=== PATIENT | female | born 1975 | race Caucasian/White ===

== ENCOUNTER 2017-12-20 12:40 | Emergency (ER) | payer OTHER ==
[2017-12-20 13:10] LABS: Bilirubin Negative (Negative); Blood, Urine Trace (Negative); Clarity Hazy (Clear); Glucose, Urine (Dipstick) Negative (Negative); Leukocyte Trace (Negative); Nitrite Negative (Negative); Protein, Urine (Dipstick) Negative (Neg-Trace); Urobilinogen 0.2 mg/dL (0.2-1.0)
[2017-12-20 13:17] LABS: Pregnancy Test - Urine (BHCG) Negative (Negative); Pregu Control Background? CLEAR/WHITE (CLR/WHITE); Pregu Control Bar Appear? YES (CONTROL BAR)
[2017-12-20 13:19] LABS: #Basophils 0.1 thou/uL (0.0-0.2); #Eosinphils 0.1 thou/uL (0.0-0.7); #Lymphocytes 1.3 thou/uL (1.20-3.40); #Monocytes 0.4 thou/uL (0.11-0.59); #Neutrophils 4.6 thou/uL (1.40-6.50); %Basophils 0.8 % (0.0-1.0); %Eosinophils 2.3 % (0.0-10.0); %Lymphocytes 20.8 % (21.0-51.0); %Monocytes 5.4 % (0.0-10.0); %Neutrophils 70.6 % (42.0-75.0); Hemoglobin 13.2 g/dL (12.0-16.0); Mean Corpuscular HGB CONC 34.9 g/dL (32.0-36.0); Mean Corpuscular Hemoglobin 28.9 pg (27.0-31.0); Mean Corpuscular Volume 82.9 fL (78.0-98.0); Mean Platelet Volume 6.6 fL (7.4-10.4); Platelet Count 220 thou/uL (130-400); RBC Distribution Width 11.8 % (11.5-14.5); Red Blood Cell (RBC) Count 4.55 mill/uL (4.20-5.40); White Blood Cell (WBC) Count 6.4 thou/uL (4.8-10.8)
[2017-12-20] MEDS ORDERED: Ketorolac Tromethamine 30 MG/ML VIAL ONE (13:24)
[2017-12-20 13:29] LABS: Bacteria/HPF 1+ HPF (None Seen); RBC/HPF 0-3 HPF (0-3)
[2017-12-20 13:36] LABS: Anion Gap 12 mmol/L (10-20); BUN (Urea Nitrogen) 9 mg/dL (7.0-18.7); Calc. Creatinine Clearance 0 mL/min (70-130); Calcium 9.3 mg/dL (7.8-10.44); Carbon Dioxide 21 mmol/L (22-29); Chloride 111 mmol/L (98-107); Estimated GFR-MDRD 78; Glucose 87 mg/dL (70-105); Lipase 23 U/L (8-78); Potassium 3.8 mmol/L (3.5-5.1); Sodium 140 mmol/L (136-145)
[2017-12-20 13:37] LABS: ALT (SGPT) 19 U/L (8-55); AST (SGOT) 15 U/L (5-34); Albumin 4.3 g/dL (3.5-5.0); Alkaline Phosphatase 48 U/L (40-150); Bilirubin, Direct 0.1 mg/dL (0.1-0.3); Bilirubin, Total 0.4 mg/dL (0.2-1.2); Protein, Total 7.1 g/dL (6.0-8.3)
--- NOTE | 2017-12-20 14:38 | CT ---
CT OF ABDOMEN AND PELVIS PERFORMED WITHOUT CONTRAST ENHANCEMENT: Date: 12/20/17 HISTORY: Abdominal pain. History of kidney stones. Left flank pain. FINDINGS: The lung bases are clear. The liver, spleen, pancreas, and gallbladder regions all appear unremarkabl e. Right and left adrenal glands are normal in appearance. Punctate bilateral renal calculi are seen wit h a single punctate calculus seen within the lower pole of the right kidney and also a small punctate calculus on the left. There is a mid left ureteral calculus located at approximately the L4-5 level. It measures approxiamtely 5.0 mm in size. There is no significant periaortic or mesenteric adenopath y. CT of pelvis was performed without contrast enhancement. The appendix region appears unremarkable. No evidence of adenopathy or mass. Several calcifications are seen within the pelvis. These are felt to represent phleboliths. Follicles are seen involving the adnexa. IMPRESSION: 1. 4-5 mm mid left ureteral calculus associatd with minimal dilatation of the left collecting system . 2. Punctate bilateral lower pole renal calculi. POS: GABRIELLE
== END 2017-12-20 14:37 | disposition home or self-care (01) ==
LOC: SCSER 12:40
DX: N20.2 Calculus of kidney with calculus of ureter (principal); G40.909 Epilepsy, unspecified, not intractable, without status epilepticus; Z79.899 Other long term (current) drug therapy
CPT/HCPCS: 74176; 80048; 80076; 81003; 81015; 81025; 83690; 85025; 96361; 96374; J1885

== ENCOUNTER 2018-03-30 15:45 | Outpatient (CLI) | payer OTHER ==
--- NOTE | 2018-03-31 08:09 | MRI ---
MRI BRAIN WITH AND WITHOUT CONTRAST MRI PITUITARY GLAND WITH AND WITHOUT CONTRAST: Date: 03/30/18 INDICATION: Hyperprolactinemia, 43-year-old female. FINDINGS: There is appropriate volume of the pituitary gland. No evidence of a sellar mass. Pituitary infundibu lum demonstrates appropriate enhancement and is located at midline. No mass effect upon optic chiasm. There is no acute territorial infarction, intracranial mass effect, midline shift, or ventriculomegal y. The imaged skull base flow-voids are patent. There are T2 hypointense foci of the scalp soft tissu es, which are intermediate in T1 signal and may related to dermal inclusion cysts/sebaceous cysts, lo cated within the posterior right parietal and left occipital scalp. Correlate with physical exam. IMPRESSION: 1. No pituitary mass. 2. No acute intracranial abnormalities. POS: GABRIELLE
== END 2018-03-30 15:46 | disposition home or self-care (01) ==
LOC: SCSMRI 15:45
PROVIDERS: ATTEND Family Medicine
DX: E22.1 Hyperprolactinemia (principal)
CPT/HCPCS: 70553